=== PATIENT | female | born 1970 | race Caucasian/White ===

== ENCOUNTER 2016-12-09 11:59 | Emergency (ER) | payer BC ==
[~2016-12-09] VITALS: Ht 160 cm; Wt 60.9 kg
[~2016-12-09 11:59] MED LIST: FLEXERIL10 MG PO; MOTRIN800 MG PO
[2016-12-09 13:16] LABS: HEMATOCRIT 41.6 % (36.0-46.0); MCH 30.8 PG (29.0-34.0); MCHC 34.6 G/DL (30.0-36.0); MCV 89.1 FL (83-99); MEAN PLAT.VOLUME 9.1 uM^3 (9.5-12.4); PLATELET COUNT 244 K/uL (156-360); RBC DIS.WIDTH-CV 12.3 % (11.8-14.6); RBC DIS.WIDTH-SD 40.2 % (39-53); RED BLOOD COUNT 4.67 M/uL (3.80-5.20); WHITE BLOOD COUNT 6.5 K/uL (4.1-10.2)
[2016-12-09 13:27] LABS: CHLORIDE 106 mEq/L (99-109); POTASSIUM 4.4 mEq/L (3.7-5.4); SODIUM 138 mEq/L (136-147)
[2016-12-09 13:29] LABS: GLUCOSE 88 mg/dL (70-99)
[2016-12-09 13:31] LABS: ANION GAP 8 MEQ/L (2-14)
[2016-12-09 13:33] LABS: GFR ESTIMATE (CALCULATED) > 59 mL/min/
[2016-12-09 13:34] LABS: UREA NITROGEN (BUN) 13 mg/dL (9-23)
[2016-12-09 13:42] LABS: TROP-I INTERPRETATION NEGATIVE; TROPONIN-I < 0.01 ng/mL (0.0-0.30)
[2016-12-09 16:26] LABS: TROP-I INTERPRETATION NEGATIVE; TROPONIN-I < 0.01 ng/mL (0.0-0.30)
[2016-12-09 17:08] VITALS: BP 132/73
== END 2016-12-09 17:13 | disposition home or self-care (01) ==
LOC: EME 11:59
PROVIDERS: Emergency Medicine
DX: R07.9 Chest pain, unspecified (principal); Z87.891 Personal history of nicotine dependence
CPT/HCPCS: 71020; 80048; 84484; 85027; 93005; 99281; 99285